=== PATIENT | female | born 1975 | race Two or more races ===

== ENCOUNTER 2024-03-02 08:29 | Emergency (ER) | payer OTHER ==
[~2024-03-02] VITALS: Ht 170.2 cm; Wt 74.8 kg
[2024-03-02] MEDS ORDERED: OSEL75CA PO (08:53)
[2024-03-02] MEDS ORDERED: KETOROLAC TROMETHAMINE 30 MG VIAL ONE (09:24)
[2024-03-02] MEDS ORDERED: RINGERS SOLUTION,LACTATED 1,000 ML IV SCH (09:30)
[2024-03-02] MEDS ORDERED: KETOROLAC TROMETHAMINE 30 MG VIAL IV ONE (09:30)
[2024-03-02 09:54] LABS: HEMATOCRIT 41.8 % (36.0-45.00); HEMOGLOBIN 14.6 g/dL (12.0-15.00); MEAN CELL VOLUME 88.5 fL (80.00-100.00); MEAN CORPUSCULAR HEMOGLOBIN 30.9 pg (27.00-32.0); MEAN CORPUSCULAR HGB CONC 34.9 g/dl (32.0-36.0); PLATELET COUNT 218 K/uL (150-450); RED BLOOD COUNT 4.72 M/uL (4.00-6.00); RED CELL DISTRIBUTION WIDTH 12.8 % (11.5-14.5)
== END 2024-03-02 14:04 | disposition home or self-care (01) ==
LOC: ER 08:30
PROVIDERS: Emergency Medicine
DX: J10.1 Influenza due to other identified influenza virus with other respiratory manifestations (principal); R53.81 Other malaise; Z88.8 Allergy status to other drugs, medicaments and biological substances